=== PATIENT | male | born 1975 | race Caucasian/White ===

== ENCOUNTER 2020-01-07 12:17 | Emergency (ER) | payer OTHER, SELFPAY ==
[2020-01-07 12:20] VITALS: BP 170/94; PULSE 98; RESP 18; TEMP 36.8; O2SAT 98; BMI 37.5
--- NOTE | 2020-01-07 12:34 | DI.RAD.S_ITS ---
PROCEDURE: XR FINGER RT MIN 2V INDICATIONS: Smashed finger, r/o bony injury TECHNIQUE: AP hand, 2 views of the right finger(s) acquired. COMPARISON: None. FINDINGS: Bones: No fractures or dislocations. No suspicious bony lesions. Soft tissues: Soft tissue injury is seen over the right index finger tip. IMPRESSION: No fracture. Soft tissue injury of the right index finger tip. Dictated by: John Orellana M.D. on 01/07/2020 at 12:57 Approved by: John Orellana M.D. on 01/07/2020 at 12:58
--- NOTE | 2020-01-07 12:42 | ED_ITS ---
HPI - Extremity Injury (Upper) <ZURDO Wilheml - Last Filed: 01/07/20 15:12> General Chief Complaint: Extremity Injury, Upper Stated Complaint: Smashed Right Pointer Finger Time Seen by Provider: 01/07/20 12:21 History of Present Illness HPI narrative: 44yo male with a history of ?heart surgery ?, presents emergency department for right index finger pain and laceration. He states he was moving a drum when the other person carrying the drum dropped his end and he smashed his finger against a metal drum and a piece of wood. Patient noticed bleeding, he states this happened approximately 20 minutes ago. Unsure of last Tdap. He denies any other injury. Patient states he is taking aspirin, does not believe he is taking any other blood thinners. Patient denies any numbness, tingling, fevers, chills, cough, or any other concerns. Patient was able to find his medical records and indicated that his last Tdap was in 2019. Related Data Previous Rx's Medication Instructions Recorded cephalexin 500 mg PO QID 7 Days #28 cap 01/07/20 Allergies Allergy/AdvReac Type Severity Reaction Status Date / Time povidone-iodine Allergy Verified 01/07/20 12:46 [From Betadine] soap [From Betadine] Allergy Verified 01/07/20 12:46 Review of Systems <ZURDO Wilhelm - Last Filed: 01/07/20 15:12> Review of Systems Narrative: REVIEW OF SYSTEMS: GENERAL: Denies fever or chills. HENT: Denies head trauma. CARDIOVASCULAR: Denies syncope. MUSCULOSKELETAL: Reports R index finger pain, see HPI. INTEGUMENTARY: Complains of laceration and swelling to right 2nd finger, see HPI. NEURO: Denies numbness or tingling. Patient History <ZURDO Wilhelm - Last Filed: 01/07/20 15:12> Medical History No significant medical problems Social History Smoking Status: Never smoker Smoking Status: Never smoker Exam <ZURDO Wilhelm - Last Filed: 01/07/20 15:12> Initial Vital Signs Initial Vital Signs: Vital Signs Temperature 98.3 F 01/07/20 12:20 Pulse Rate 98 H 01/07/20 12:20 Respiratory Rate 18 01/07/20 12:20 Blood Pressure 170/94 H 01/07/20 12:20 Pulse Oximetry 98 01/07/20 12:20 PHYSICAL EXAMINATION: GENERAL: Well groomed, alert, and cooperative. Answers questions promptly and appropriately. Vital signs noted. HENT: Normocephalic, atraumatic. RESPIRATORY: Normal respiratory rate, trachea midline, airway patent. No stridor, nasal flaring or accessory muscle use. MUSCULOSKELETAL: Normal gait and coordination. Equal tone and mass bilaterally. EXTREMITIES: CMS intact. Radial pulses 2+ and intact bilaterally. SKIN: Warm, dry, soft, appropriate color for ethnicity. A 4 cm laceration/avulsion to tip of right 1st finger, not involving the nail or any joint. Full range of motion of finger against resistance of DIP joint. B leeding controlled with pressure. Sensation of finger intact distal and proximal to lac/vulsion. NEURO: Alert and Oriented X 3. Good coordination. PSYCH: Appropriate affect and mood. <Darius Oconnor DO - Last Filed: 01/07/20 15:17> Initial Vital Signs Initial Vital Signs: Vital Signs Temperature 98.3 F 01/07/20 12:20 Pulse Rate 98 H 01/07/20 12:20 Respiratory Rate 18 01/07/20 12:20 Blood Pressure 170/94 H 01/07/20 12:20 Pulse Oximetry 98 01/07/20 12:20 Procedures <ZURDO Wilhelm - Last Filed: 01/07/20 15:12> Laceration Repair Laceration 1: Site: upper extremity Side (If applicable): right Size (cm): 4 Description: flap Depth: simple, single layer Local Anesthetic: lidocaine 1% and bupivacaine 0.5% Amount of anesthesia used (mL): 4 Pre-repair: wound explored and irrigated extensively Skin layer closed with: nylon Size (cm): 4-0 Number of sutures: 9 Technique: simple, interrupted Course <ZURDO Wilhelm - Last Filed: 01/07/20 15:12> Orders Ordered: ED Orders 01/07/20 12:34 XR finger RT min 2V Stat Discontinued Medications Acetaminophen (Acetaminophen 325 Mg Tablet) 975 mg PO NOW ONE Stop: 01/07/20 12:36 Last Admin: 01/07/20 13:07 Dose: 975 mg Documented by: MIKE Bacitracin (Bacitracin Oint 0.9 Gm Pckt) 1 applic TOP NOW ONE Stop: 01/07/20 12:37 Last Admin: 01/07/20 13:07 Dose: 1 applic Documented by: MIKE Diphtheria/Tetanus/Acell Pertussis (Tet,Diph,Pertuss(Acell),Vac/Pf 0.5 Ml Syringe) 0.5 ml IM .ONCE ONE Stop: 01/07/20 12:36 Last Admin: 01/07/20 13:07 Dose: Not Given Documented by: MIKE Lidocaine/Sodium Bicarbonate (Lido 1%/Sod Bicarb 8.4% (10ml) 10 Ml Syringe) 10 ml INJ NOW ONE Stop: 01/07/20 12:37 Last Admin: 01/07/20 13:48 Dose: 10 ml Documented by: BETO Vital Signs Vital signs: Vital Signs - 8 hr 01/07/20 12:20 01/07/20 13:58 Temperature 98.3 F Pulse Rate 98 H 89 Respiratory Rate 18 16 Blood Pressure 170/94 H 135/83 Pulse Oximetry 98 98 <Darius Oconnor, DO - Last Filed: 01/07/20 15:17> Orders Ordered: ED Orders 01/07/20 12:34 XR finger RT min 2V Stat Discontinued Medications Acetaminophen (Acetaminophen 325 Mg Tablet) 975 mg PO NOW ONE Stop: 01/07/20 12:36 Last Admin: 01/07/20 13:07 Dose: 975 mg Documented by: MIKE Bacitracin (Bacitracin Oint 0.9 Gm Pckt) 1 applic TOP NOW ONE Stop: 01/07/20 12:37 Last Admin: 01/07/20 13:07 Dose: 1 applic Documented by: MIKE Diphtheria/Tetanus/Acell Pertussis (Tet,Diph,Pertuss(Acell),Vac/Pf 0.5 Ml Syringe) 0.5 ml IM .ONCE ONE Stop: 01/07/20 12:36 Last Admin: 01/07/20 13:07 Dose: Not Given Documented by: MIKE Lidocaine/Sodium Bicarbonate (Lido 1%/Sod Bicarb 8.4% (10ml) 10 Ml Syringe) 10 ml INJ NOW ONE Stop: 01/07/20 12:37 Last Admin: 01/07/20 13:48 Dose: 10 ml Documented by: BETO Vital Signs Vital signs: Vital Signs - 8 hr 01/07/20 12:20 01/07/20 13:58 Temperature 98.3 F Pulse Rate 98 H 89 Respiratory Rate 18 16 Blood Pressure 170/94 H 135/83 Pulse Oximetry 98 98 MDM - Extremity Injury (Upper) <ZURDO Wilhelm - Last Filed: 01/07/20 15:12> Medical Records Attestation: I reviewed the patient's medical records. Lab Data Attestation: I reviewed the patient's lab results. Imaging Data Extremity x-ray #1: Radiologist's Impression: [address] [id number] ReportSigned Patient: Dimitri Lees TMR#: [id number]: 1975Acct:[id number]/Sex: 44 / MDate of Service: 01/07/20Loc: EDAccession Number: [id number] Procedure: XR finger RT min 2V Ordering Provider: Bridget Vergara PROCEDURE: XR FINGER RT MIN 2V INDICATIONS: Smashed finger, r/o bony injury TECHNIQUE: AP hand, 2 views of the right finger(s) acquired. COMPARISON: None. FINDINGS: Bones: No fractures or dislocations. No suspicious bony lesions. Soft tissues: Soft tissue injury is seen over the right index finger tip. IMPRESSION: No fracture. Soft tissue injury of the right index finger tip. Dictated by: John Orellana M.D. on 01/07/2020 at 12:57 Approved by: John Orellana M.D. on 01/07/2020 at 12:58 [facility] Narrative Medical decision making narrative: 44-year-old male presents emergency department for right 2nd finger laceration after smashing his finger with a drum. Bleeding was controlled with pressure, x-ray was negative for any fractures. Wound was extensively irrigated and 9 sutures replaced after numbing with lidocaine, patient tolerated procedure well, see procedure note above. Less concern for any tendon involvement given location of laceration which was distal to the dip joint, full range of motion in joint against resistance as well. Less concern for any foreign bodies due to lack of visualized foreign bodies after extensive irrigation exploration. Bleeding controlled after sutures were placed. Patient was educated about watching for signs of infection. He was started on cephalexin given wound was extensively dirty and deep. Return precautions given for new or worsening symptoms. Patient agreed to plan of care verbalized understanding. Discharge Plan Departure Patient Disposition: Home Clinical Impression: Finger laceration Qualifiers: Encounter type: initial encounter Finger: index finger Damage to nail status: without damage Foreign body presence: without foreign body Laterality: right Qualified Code(s): S61.210A - Laceration without foreign body of right index finger without damage to nail, initial encounter Instructions: DI for Laceration Repair Activity Restrictions/Additional Instructions: Thank you for entrusting me with your care today. As discussed, 9 sutures were placed in your wound today, they will need to be removed in 10-14 days. You can have them removed here, the walk-in clinic, or primary care provider. Your x-ray was negative for any fractures. Do not soak your wound in any water this includes dishwater, lakes, or a hot tub. Taking a showers okay. Leave the dressing in place for the next 24 hours, after that you may remove the dressing and wash the area gently with soap and water. Apply bacitracin or Neosporin to the area 1 to 2 times a day. Keep the wound covered for the next 3 days, after that you need to cover it for any activities that would cause dirt to enter the wound. No foreign bodies were found in your wound today. While there is low-risk for infection at this time, retained foreign bodies and infection are always possible with any cut or break in the skin. Because your wound was excessively 30, your started on antibiotics. Please monitor the wound closely and be re- evaluated immediately if you develop any signs of infection such as pus, increasing redness, increasing pain, fevers, or any other concerns. Prescriptions: New cephalexin 500 mg capsule 500 mg PO QID 7 Days Qty: 28 RF: 0 <Darius Oconnor, DO - Last Filed: 01/07/20 15:17> Cosign ED Attending Cosignature Attestation: Dr Oconnor Co-Sign Statement: I was available for consultation during this patient's emergency department visit. This chart is signed by myself for administrative purposes only. I did not have direct contact with this patient during this visit. They were seen independently by the APC.
[2020-01-07] MEDS: BACITRACIN OINT 0.9 GM PCKT 1 APPLIC TOP (13:07)
[2020-01-07] MEDS: ACETAMINOPHEN 325 MG TABLET 975 MG PO (13:07)
[2020-01-07] MEDS: LIDO 1%/SOD BICARB 8.4% (10ML) 10 ML SYRINGE INJ (13:48)
[2020-01-07 13:58] VITALS: BP 135/83; PULSE 89; RESP 16; O2SAT 98
== END 2020-01-07 14:06 | disposition home or self-care (01) ==
PROVIDERS: Emergency Provider Nurse Practitioner
DX: S61.210A Laceration without foreign body of right index finger without damage to nail, initial encounter (principal); W23.0XXA Caught, crushed, jammed, or pinched between moving objects, initial encounter; Z23 Encounter for immunization
CPT/HCPCS: 12002; 73140; 90471; 99283